=== PATIENT | male | born 1940 | race Caucasian/White ===

== ENCOUNTER 2019-05-02 13:59 | Observation (INO) | payer MEDICARE ==
[~2019-05-02] VITALS: Ht 167.6 cm; Wt 96.0 kg
[2019-05-02 14:19] VITALS: BP 156/84
[2019-05-02] MEDS ORDERED: LACTATED RINGERS 1,000 ML IV SCH (14:21)
[2019-05-02] MEDS ORDERED: PLEASE ENTER ALLERGIES MC SCH ×3 (14:30→23:45)
[2019-05-02] MEDS ORDERED: PLEASE ENTER HEIGHT AND WEIGHT MC SCH (14:30)
[2019-05-02] MEDS ORDERED: METOPROLOL (15:17)
[2019-05-02] MEDS ORDERED: PROPECIA (15:17)
[2019-05-02] MEDS ORDERED: LISINOPRIL (15:17)
[2019-05-02] MEDS ORDERED: SUCCINYLCHOLINE 20 MG/ML, 10ML ONE (15:24)
[2019-05-02] MEDS ORDERED: ONDANSETRON 2MG/ML, 2ML ONE (15:24)
[2019-05-02] MEDS ORDERED: DEXAMETHASONE 4 MG/ML, 1ML ONE (15:24)
[2019-05-02] MEDS ORDERED: ROCURONIUM 10 MG/ML,10ML ONE (15:24)
[2019-05-02] MEDS ORDERED: CEFAZOLIN 1,000 MG ONE (15:24)
[2019-05-02] MEDS ORDERED: PROPOFOL 10 MG/ML, 20ML ONE (15:24)
[2019-05-02 15:32] LABS: ALANINE AMINOTRANSFERASE 29 U/L (12-78); ALBUMIN 4.1 g/dL (3.4-5.0); ANION GAP 7 mmol/L (5-15); CALCIUM 9.3 mg/dL (8.5-10.1); CHLORIDE 111 mmol/L (98-107); CREATININE 1.16 mg/dL (0.7-1.3)
[2019-05-02 15:34] LABS: ALKALINE PHOSPHATASE 82 U/L (45-117); TOTAL PROTEIN 8.2 g/dL (6.4-8.2)
[2019-05-02] MEDS ORDERED: MIDAZOLAM 1 MG/ML, 2ML ONE (16:05)
[2019-05-02] MEDS ORDERED: hydrALAzine 20 MG/ML, 1ML IV PRN (17:00)
[2019-05-02] MEDS ORDERED: MEPERIDINE/PF 25MG/0.5ML IVPush PRN (17:00)
[2019-05-02] MEDS ORDERED: METOCLOPRAMIDE 5 MG/ML, 2ML IV PRN (17:00)
[2019-05-02] MEDS ORDERED: OXYcodone 5 MG/5 ML ORAL.SOL UDC PO PRN (17:00)
[2019-05-02] MEDS ORDERED: ALBUTEROL SULFATE 2.5 MG/3 ML NPPB PRN (17:00)
[2019-05-02] MEDS ORDERED: HYDROmorphone 1 MG/ML, 1ML INJ IV PRN (17:00)
[2019-05-02] MEDS ORDERED: PROMETHAZINE 25 MG/ML, 1ML IV PRN (17:00)
[2019-05-02] MEDS ORDERED: FENTANYL PF 100 MCG/2ML IV PRN (17:00)
[2019-05-02] MEDS ORDERED: KETOROLAC 30 MG/1 ML IV PRN (17:00)
[2019-05-02] MEDS ORDERED: ONDANSETRON 2MG/ML, 2ML IVPush PRN ×2 (17:00→22:00)
[2019-05-02] MEDS ORDERED: LABETALOL 5MG/ML, 20ML IV PRN (17:00)
[2019-05-02] MEDS ORDERED: FENTANYL PF 100 MCG/2ML ONE (17:24)
[2019-05-03 00:47] VITALS: BP 142/67
[2019-05-03 04:02] VITALS: BP 164/84
[2019-05-03 08:05] VITALS: BP 159/77
[2019-05-03 13:39] VITALS: BP 152/88
== END 2019-05-03 13:57 | disposition home or self-care (01) ==
LOC: OR 13:59 → 4NE 18:56 → OR 21:39 → 4NE 21:40 → DCLOUNGE 05-03 13:44
PROVIDERS: ADMIT Urology; ATTEND Urology
DX: N21.0 Calculus in bladder (principal); I10 Essential (primary) hypertension; G47.33 Obstructive sleep apnea (adult) (pediatric); C61 Malignant neoplasm of prostate; N40.0 Benign prostatic hyperplasia without lower urinary tract symptoms; Z85.51 Personal history of malignant neoplasm of bladder; R31.0 Gross hematuria; Z92.3 Personal history of irradiation
CPT/HCPCS: 36415; 52317; 80053; 82360; 88300; 93005; C2625; C2630; G0378; J0330; J0690; J1100; J2250; J2405; J2704; J3010; J7120